=== PATIENT | female | born 1955 | race Caucasian/White ===

== ENCOUNTER → 2018-11-09 | Outpatient (REF) | payer MEDICARE, OTHER | LOC: M LAB REF 12:53 | PROVIDERS: ATTEND Internal Medicine | DX: Z01.89 Encounter for other specified special examinations (principal) ==

== ENCOUNTER → 2019-02-01 | Outpatient (REF) | payer MEDICARE, OTHER ==
[2019-02-01 17:55] LABS: PERCENT SATURATION 23.1 % (13.2-45.0)
== END ==
LOC: M LAB REF 16:18
PROVIDERS: ATTEND Internal Medicine
DX: D50.9 Iron deficiency anemia, unspecified (principal)

== ENCOUNTER → 2020-01-08 | Outpatient (REF) | payer MEDICARE, OTHER ==
[~2020-01-08] MED LIST: AMLO1TAB24; BUPR-69; DULO1CAP5; DULO1CAP6; HYDR-3363; MONT10TA4; OMEP1CAP73; PROP20TA72; SYNT137T7; VALS1TAB67
== END ==
LOC: M LAB REF 19:15
PROVIDERS: ATTEND Physician Assistant
DX: D22.39 Melanocytic nevi of other parts of face (principal)
CPT/HCPCS: 11102; 17110; 88305; G0463

== ENCOUNTER 2020-02-03 14:19 | Emergency (ER) | payer MEDICARE, OTHER ==
[~2020-02-03] VITALS: Ht 167.6 cm; Wt 92.1 kg
[2020-02-03] MEDS ORDERED: MONT10TA4 (14:43)
[2020-02-03] MEDS ORDERED: OMEP1CAP73 (14:43)
[2020-02-03] MEDS ORDERED: AMLO1TAB24 (14:43)
[2020-02-03] MEDS ORDERED: SYNT137T7 (14:43)
[2020-02-03] MEDS ORDERED: BUPR-69 (14:43)
[2020-02-03] MEDS ORDERED: PROP20TA72 (14:43)
[2020-02-03] MEDS ORDERED: VALS1TAB67 (14:43)
[2020-02-03] MEDS ORDERED: DULO1CAP6 (14:43)
[2020-02-03] MEDS ORDERED: HYDR-3363 (14:43)
[2020-02-03] MEDS ORDERED: DULO1CAP5 (14:43)
[2020-02-03] MEDS ORDERED: ONDANSETRON 4MG/2ML VIAL IV ONE (15:30)
[2020-02-03] MEDS ORDERED: KETOROLAC 30 MG/ML 1ML VIAL IV ONE (15:30)
[2020-02-03] MEDS ORDERED: NS 1,000 ML IV ONE (15:30)
[2020-02-03 15:47] LABS: BASO % 0.5 % (0.0-1.0); EOS # 0.1 10^3/uL (0.0-0.5); EOS % 0.9 % (0.0-3.0); HEMATOCRIT 43.8 % (36.0-47.0); HEMOGLOBIN 14.1 g/dl (12.0-15.5); LYMPH # 2.3 10^3/uL (1.5-5.0); LYMPH % 28.6 % (24.0-44.0); MEAN CORPUSCULAR HEMOGLOBIN 29.4 pg (27.0-33.0); MEAN CORPUSCULAR HGB CONC 32.2 g/dl (32.0-36.5); MEAN CORPUSCULAR VOLUME 91.3 fl (80.0-96.0); MONO # 0.6 10^3/uL (0.0-0.8); MONO % 7.8 % (0.0-5.0); NEUTROPHILS % 61.8 % (36.0-66.0); PLATELET COUNT, AUTOMATED 253 10^3/uL (150-450); WHITE BLOOD COUNT 8.1 10^3/uL (4.0-10.0)
[2020-02-03 16:13] LABS: ALBUMIN 3.8 GM/DL (3.2-5.2); ALT/SGPT 48 U/L (12-78); BILIRUBIN,DIRECT < 0.1 MG/DL (0.0-0.2); BILIRUBIN,TOTAL 0.3 MG/DL (0.2-1.0); BLOOD UREA NITROGEN 14 MG/DL (7-18); CALCIUM LEVEL 9.3 MG/DL (8.8-10.2); CARBON DIOXIDE LEVEL 28 MEQ/L (21-32); CHLORIDE LEVEL 105 MEQ/L (98-107); CREATININE FOR GFR 0.88 MG/DL (0.55-1.30); GLOMERULAR FILTRATION RATE > 60.0 (>45); GLUCOSE, FASTING 98 MG/DL (70-100); LIPASE 382 U/L (73-393); POTASSIUM SERUM 4.4 MEQ/L (3.5-5.1); SODIUM LEVEL 138 MEQ/L (136-145); TOTAL PROTEIN 6.8 GM/DL (6.4-8.2)
[2020-02-03 16:49] VITALS: BP 145/75
== END 2020-02-03 16:55 | disposition home or self-care (01) ==
LOC: M ED 14:19
DX: R51.9 Headache, unspecified (principal); R11.0 Nausea; R53.81 Other malaise; R53.83 Other fatigue; I10 Essential (primary) hypertension; E03.9 Hypothyroidism, unspecified; K76.0 Fatty (change of) liver, not elsewhere classified; G47.30 Sleep apnea, unspecified; F33.9 Major depressive disorder, recurrent, unspecified; Z98.84 Bariatric surgery status; Z79.899 Other long term (current) drug therapy; Z79.890 Hormone replacement therapy; Z88.1 Allergy status to other antibiotic agents; Z88.2 Allergy status to sulfonamides; Z91.048 Other nonmedicinal substance allergy status
CPT/HCPCS: 80048; 80076; 83690; 85025; 96361; 96374; 96375; 99284; J1885; J2405

== ENCOUNTER 2020-07-22 10:24 | Emergency (ER) | payer MEDICARE, OTHER ==
[~2020-07-22] VITALS: Ht 167.6 cm; Wt 92.1 kg
[~2020-07-22 10:24] MED LIST changes: +MONT10TA10; -MONT10TA4
[2020-07-22] MEDS ORDERED: KETOROLAC 30 MG/ML 1ML VIAL IV ONE (11:30)
[2020-07-22 11:39] LABS: BASO % 0.3 % (0.0-1.0); EOS # 0.1 10^3/uL (0.0-0.5); EOS % 0.5 % (0.0-3.0); HEMATOCRIT 45.5 % (36.0-47.0); HEMOGLOBIN 14.9 g/dl (12.0-15.5); LYMPH # 2.1 10^3/uL (1.5-5.0); LYMPH % 21.2 % (24.0-44.0); MEAN CORPUSCULAR HEMOGLOBIN 30.2 pg (27.0-33.0); MEAN CORPUSCULAR HGB CONC 32.7 g/dl (32.0-36.5); MEAN CORPUSCULAR VOLUME 92.1 fl (80.0-96.0); MONO # 0.7 10^3/uL (0.0-0.8); MONO % 7.2 % (2.0-8.0); NEUTROPHILS % 70.4 % (36.0-66.0); PLATELET COUNT, AUTOMATED 257 10^3/uL (150-450); RED BLOOD COUNT 4.94 10^6/uL (4.00-5.40)
[2020-07-22 12:13] LABS: ALBUMIN 3.9 GM/DL (3.2-5.2); ALT/SGPT 54 U/L (12-78); BILIRUBIN,DIRECT < 0.1 MG/DL (0.0-0.2); BILIRUBIN,TOTAL 0.2 MG/DL (0.2-1.0); LIPASE 289 U/L (73-393)
--- NOTE | 2020-07-22 12:15 | REP ---
INDICATION: L flank pain, hematuria, hx of stones COMPARISON: 05/18/2014 TECHNIQUE: Axial noncontrast images from the lung bases to the pubic symphysis with coronal and sagittal reformations. This CT examination was performed using the following dose reduction techniques: Automated exposure control, adjustment of mA and/or kv according to the patient's size, and use of iterative reconstruction technique. FINDINGS: Moderate acute left-sided obstructive uropathy with hydroureteronephrosis, perinephric and periureteral stranding secondary to a 6 mm calculus in the distal left ureter (series 201; images 123-125). Multiple nonobstructing left renal calculi are identified including 11 mm calculus at the ureteropelvic junction. Right kidney includes few nonobstructing calculi and forming staghorn calculus in the lower pole measuring approximately 2 cm. Liver, spleen, pancreas, and bilateral adrenal glands are normal for noncontrast evaluation. Cholelithiasis suggested without acute cholecystitis. Evidence for prior gastric bypass surgery. No bowel obstruction or acute inflammatory process. Pelvis demonstrates normal bladder and age-appropriate uterus/adnexa. No ascites. No free air. No adenopathy. Atherosclerotic changes to the aorta and vasculature noted without aneurysm. Musculoskeletal structures demonstrate osteopenia and degenerative changes. Lung bases are clear. IMPRESSION: 1. Acute left-sided obstructive uropathy with a 6 mm calculus in the distal left ureter along with multiple bilateral nonobstructing renal calculi. 2. Cholelithiasis. <Electronically signed by Mook Quinones > 07/22/20 [id number]
[2020-07-22] MEDS ORDERED: HYDR-4571 PO (12:56)
[2020-07-22] MEDS ORDERED: FLOM0.4C39 PO (12:56)
[2020-07-22 13:03] VITALS: BP 151/70
== END 2020-07-22 13:29 | disposition home or self-care (01) ==
LOC: M ED 10:24
DX: K80.20 Calculus of gallbladder without cholecystitis without obstruction (principal); N20.0 Calculus of kidney; I10 Essential (primary) hypertension; E03.9 Hypothyroidism, unspecified; F33.9 Major depressive disorder, recurrent, unspecified; G47.33 Obstructive sleep apnea (adult) (pediatric); K76.9 Liver disease, unspecified; Z79.899 Other long term (current) drug therapy; Z79.890 Hormone replacement therapy; Z88.1 Allergy status to other antibiotic agents; Z88.2 Allergy status to sulfonamides; Z91.048 Other nonmedicinal substance allergy status; Z87.891 Personal history of nicotine dependence
CPT/HCPCS: 36415; 74176; 80047; 80076; 81001; 83690; 85025; 87086; 96374; 99284; J1885

== ENCOUNTER 2020-08-12 16:39 | Emergency (ER) | payer MEDICARE, OTHER ==
[~2020-08-12] VITALS: Ht 167.6 cm; Wt 93.3 kg
[~2020-08-12 16:39] MED LIST changes: +FLOM0.4C39 PO; +HYDR-4571 PO
--- NOTE | 2020-08-12 17:12 | REP ---
INDICATION: injury, pain, 4th metatarsal COMPARISON: None. TECHNIQUE: Four views left 4th toe. FINDINGS: There is nondisplaced oblique fracture of the 4th proximal phalanx. There is no other evidence of acute fracture or dislocation. IMPRESSION: Nondisplaced fracture 4th proximal phalanx. <Electronically signed by Pedro Luis Houston > 08/12/20 [id number]
[2020-08-12] MEDS ORDERED: BOOSTRIX/ADACEL VACCINE (DIPHTH/PERTUSS/ACELL/TETANUS) 0.5ML SYR IM ONE (21:20)
[2020-08-12 21:44] VITALS: BP 172/80
== END 2020-08-12 22:05 | disposition home or self-care (01) ==
LOC: M ED 16:39
DX: I10 Essential (primary) hypertension (principal); S30.810A Abrasion of lower back and pelvis, initial encounter; S92.342A Displaced fracture of fourth metatarsal bone, left foot, initial encounter for closed fracture; W01.0XXA Fall on same level from slipping, tripping and stumbling without subsequent striking against object, initial encounter; Y92.018 Other place in single-family (private) house as the place of occurrence of the external cause; E03.9 Hypothyroidism, unspecified; F33.9 Major depressive disorder, recurrent, unspecified; G47.30 Sleep apnea, unspecified; K76.0 Fatty (change of) liver, not elsewhere classified; K21.9 Gastro-esophageal reflux disease without esophagitis; Z98.84 Bariatric surgery status; Z79.899 Other long term (current) drug therapy; Z79.890 Hormone replacement therapy; Z88.1 Allergy status to other antibiotic agents; Z88.2 Allergy status to sulfonamides; Z91.048 Other nonmedicinal substance allergy status; F12.20 Cannabis dependence, uncomplicated

== ENCOUNTER → 2020-11-11 | Outpatient (CLI) | payer MEDICARE, OTHER ==
[~2020-11-11] MED LIST changes: -AMLO1TAB24; +AMLO1TAB24 PO; +ASPI81TA26 PO; +B-12100010 PO; -BUPR-69; +BUPR-69 PO; +D31000TA2 PO; -DULO1CAP6; +DULO1CAP6 PO; +LINZ145C PO; -MONT10TA10; +MONT10TA97 PO; -OMEP1CAP73; +OMEP1CAP73 PO; -PROP20TA72; +PROP20TA72 PO; +SLOWTAB2 PO; -SYNT137T7; +SYNT137T7 PO; -VALS1TAB67; +VALS1TAB67 PO
== END ==
LOC: M WHC 09:00
PROVIDERS: ATTEND Internal Medicine
DX: Z12.31 Encounter for screening mammogram for malignant neoplasm of breast (principal)

== ENCOUNTER → 2021-02-24 | Outpatient (CLI) | payer MEDICARE, OTHER ==
[~2021-02-24] MED LIST changes: +AMLO1TAB24; -AMLO1TAB24 PO; -ASPI81TA26 PO; -B-12100010 PO; +BUPR-69; -BUPR-69 PO; -D31000TA2 PO; +DULO1CAP6; -DULO1CAP6 PO; -LINZ145C PO; +MONT10TA10; -MONT10TA97 PO; +OMEP1CAP73; -OMEP1CAP73 PO; +PROP20TA72; -PROP20TA72 PO; -SLOWTAB2 PO; +SYNT137T7; -SYNT137T7 PO; +VALS1TAB67; -VALS1TAB67 PO
--- NOTE | 2021-02-24 09:34 | REP ---
INDICATION: RUQ ABD PAIN. COMPARISON: 04/13/2013 TECHNIQUE: Real-time sonographic evaluation of the right upper quadrant with Doppler FINDINGS: Multiple ultrasonographic images of the liver show diffuse increased echoes throughout the hepatic parenchyma without evidence of a mass or ductal dilatation. The common bile duct measures approximately 3 mm in its greatest transverse dimension. Multiple ultrasonographic images of the gallbladder show no focal or diffuse gallbladder wall thickening. Once again, nonshadowing immobile echogenic material is seen along the dependent portion of the gallbladder wall. This appears unchanged. There are no echogenic foci within the gallbladder lumen, which casts acoustic shadows. There is no pericholecystic edema. Images of the pancreatic region show no gross abnormality. Seen in the lower pole the right kidney note is again made of echogenic material which casts in acoustic shadow. Also seen in the lower pole there is a round anechoic structure consistent with a cyst. This is unchanged from the prior exam although slightly larger. IMPRESSION: 1. Echogenic material in the gallbladder as described above. Sludge versus tiny polyps or nonshadowing calculi. 2. Unchanged echogenic foci in the lower pole of the right kidney suspicious for calculi. Prior CT of 07/22/2020 did show renal calculi. 3. Simple right renal cyst and seen on the prior exam. 4. Possible mild fatty infiltration of the liver. Accredited by the [employer] in General Ultrasound. <Electronically signed by Louie West > 02/24/21 [id number]
== END ==
LOC: M RAD 08:33
PROVIDERS: ATTEND Internal Medicine
DX: R10.11 Right upper quadrant pain (principal); K82.8 Other specified diseases of gallbladder

== ENCOUNTER → 2021-04-07 | Outpatient (CLI) | payer MEDICARE, OTHER ==
--- NOTE | 2021-04-07 10:36 | REP ---
INDICATION: SLUDGE VS POLYPS, RUQ PAIN. COMPARISON: None TECHNIQUE/RADIOTRACER AND DOSE: FOLLOWING THE INTRAVENOUS ADMINISTRATION OF 6.6 MCI TECHNETIUM 99 M-MEBROFENIN, MULTIPLE IMAGES OF THE RIGHT UPPER QUADRANT ARE PERFORMED FOR 60 MINUTES. NEXT 8 OZ OF ENSURE ENLIVE IS INGESTED AND FURTHER IMAGING IS PERFORMED FOR 65 MINUTES. FINDINGS: THE GALLBLADDER IS VISUALIZED AT 55 MINUTES POST INJECTION. THERE IS BILIARY TO BOWEL TRANSIT AT 15MINUTES POST INJECTION. THERE IS NO SCINTIGRAPHIC EVIDENCE OF CHOLECYSTITIS. GALLBLADDER EJECTION FRACTION IS CALCULATED TO BE 21% WHICH IS below a normal value of greater than 35%. IMPRESSION: Gallbladder ejection fraction 21% is below a normal ejection fraction of greater than 35%. <Electronically signed by Pedro Luis Houston > 04/07/21 [id number]
== END ==
LOC: M RAD 07:26
PROVIDERS: ATTEND Internal Medicine
DX: R10.11 Right upper quadrant pain (principal)
CPT/HCPCS: 78227; A9537

== ENCOUNTER → 2021-06-07 | Outpatient (CLI) | payer MEDICARE, OTHER ==
[~2021-06-07] MED LIST changes: -AMLO1TAB24; +AMLO1TAB24 PO; +ASPI81TA26 PO; +B-12100010 PO; -BUPR-69; +BUPR-69 PO; -DULO1CAP6; +DULO1CAP6 PO; +LINZ145C PO; -MONT10TA10; +MONT10TA97 PO; -OMEP1CAP73; +OMEP1CAP73 PO; -PROP20TA72; +PROP20TA72 PO; +SLOWTAB2 PO; -SYNT137T7; +SYNT137T7 PO; -VALS1TAB67; +VALS1TAB67 PO; +VITA100093 PO
== END ==
LOC: M LABSMTC 09:33
PROVIDERS: ATTEND Anesthesiology
DX: Z01.812 Encounter for preprocedural laboratory examination (principal); Z20.822 Contact with and (suspected) exposure to COVID-19

== ENCOUNTER 2021-06-12 09:52 | Day surgery (SDC) | payer MEDICARE, OTHER ==
[~2021-06-12] VITALS: Ht 167.6 cm; Wt 88.9 kg
[~2021-06-12 09:52] MED LIST changes: +CYCLOPENTOLATE 1% OPHTH SOLN 2 ML BTL OD SCH; +FLURBIPROFEN 0.03% OPHTH SOLN 2.5 ML OD SCH; +LIDOCAINE 1% SDV 5ML VIAL As Ordered ONE; +LR 1,000 ML IV SCH; +MAXITROL OPHTH SUSP 5 ML As Ordered ONE; +MIDAZOLAM INJ 2MG/2ML VIAL (J2250 PER 1MG) As Ordered ONE; +PHENYLEPHRINE 2.5% OPHTH SOL 2ML OD SCH; +TETRACAINE 0.5% OPHTH SOLN 4ML OD SCH; +fentaNYL 100 MCG/2 ML INJECTION As Ordered ONE
[2021-06-12] MEDS ORDERED: PHENYLEPHRINE HCL 10 % OPHTH. SOL 5ML OD ONE (10:25)
[2021-06-12] MEDS ORDERED: MIDAZOLAM INJ 2MG/2ML VIAL (J2250 PER 1MG) As Ordered ONE (12:47)
[2021-06-12 13:45] VITALS: BP 160/74
== END 2021-06-12 13:52 | disposition home or self-care (01) ==
LOC: M SDC 09:52
PROVIDERS: ATTEND Ophthalmology
DX: H25.11 Age-related nuclear cataract, right eye (principal); I10 Essential (primary) hypertension; E03.9 Hypothyroidism, unspecified; K58.9 Irritable bowel syndrome, unspecified; K21.9 Gastro-esophageal reflux disease without esophagitis; F32.9 Major depressive disorder, single episode, unspecified; G47.9 Sleep disorder, unspecified; R06.83 Snoring; Z98.84 Bariatric surgery status; F12.10 Cannabis abuse, uncomplicated; Z88.8 Allergy status to other drugs, medicaments and biological substances; Z79.899 Other long term (current) drug therapy
CPT/HCPCS: 66984; J2250; J3010; V2632

== ENCOUNTER → 2021-07-05 | Outpatient (CLI) | payer MEDICARE, OTHER ==
[~2021-07-05] MED LIST changes: -CYCLOPENTOLATE 1% OPHTH SOLN 2 ML BTL OD SCH; -FLURBIPROFEN 0.03% OPHTH SOLN 2.5 ML OD SCH; -LIDOCAINE 1% SDV 5ML VIAL As Ordered ONE; -LR 1,000 ML IV SCH; -MAXITROL OPHTH SUSP 5 ML As Ordered ONE; +METO5TAB2 PO; -MIDAZOLAM INJ 2MG/2ML VIAL (J2250 PER 1MG) As Ordered ONE; -PHENYLEPHRINE 2.5% OPHTH SOL 2ML OD SCH; -TETRACAINE 0.5% OPHTH SOLN 4ML OD SCH; -fentaNYL 100 MCG/2 ML INJECTION As Ordered ONE
== END ==
LOC: M LABSMTC 09:37
PROVIDERS: ATTEND Anesthesiology
DX: Z11.52 Encounter for screening for COVID-19 (principal); Z20.822 Contact with and (suspected) exposure to COVID-19

== ENCOUNTER 2021-07-10 09:24 | Day surgery (SDC) | payer MEDICARE, OTHER ==
[~2021-07-10] VITALS: Ht 167.6 cm; Wt 88.5 kg
[~2021-07-10 09:24] MED LIST changes: +LIDOCAINE 1% SDV 5ML VIAL As Ordered ONE; +LR 1,000 ML IV SCH
[2021-07-10] MEDS: TETRACAINE 0.5% OPHTH SOLN 4ML OS SCH ×2 (10:02→10:09)
[2021-07-10] MEDS: PHENYLEPHRINE 2.5% OPHTH SOL 2ML OS SCH ×3 (10:02→10:17)
[2021-07-10] MEDS: FLURBIPROFEN 0.03% OPHTH SOLN 2.5 ML OS SCH ×3 (10:02→10:17)
[2021-07-10] MEDS: CYCLOPENTOLATE 1% OPHTH SOLN 2 ML BTL OS SCH ×3 (10:02→10:16)
[2021-07-10] MEDS ORDERED: MAXITROL OPHTH SUSP 5 ML As Ordered ONE (11:36)
[2021-07-10] MEDS ORDERED: MIDAZOLAM INJ 2MG/2ML VIAL (J2250 PER 1MG) As Ordered ONE (11:36)
[2021-07-10] MEDS ORDERED: fentaNYL 100 MCG/2 ML INJECTION As Ordered ONE (11:36)
[2021-07-10] MEDS ORDERED: ACETYLCHOLINE OPHTH SOLN 1% 2ML (MIOCHOL-E) As Ordered ONE (11:55)
[2021-07-10 12:03] VITALS: BP 167/79
== END 2021-07-10 12:36 | disposition home or self-care (01) ==
LOC: M SDC 09:24
PROVIDERS: ATTEND Ophthalmology
DX: H25.12 Age-related nuclear cataract, left eye (principal); I10 Essential (primary) hypertension; G47.33 Obstructive sleep apnea (adult) (pediatric); Z98.84 Bariatric surgery status; K21.9 Gastro-esophageal reflux disease without esophagitis; K76.0 Fatty (change of) liver, not elsewhere classified; E03.9 Hypothyroidism, unspecified; F32.9 Major depressive disorder, single episode, unspecified; Z79.82 Long term (current) use of aspirin; Z79.899 Other long term (current) drug therapy
CPT/HCPCS: 66984; J2250; J3010; V2632

== ENCOUNTER → 2021-12-25 | Outpatient (REF) | payer MEDICARE, OTHER ==
[~2021-12-25] MED LIST changes: -LIDOCAINE 1% SDV 5ML VIAL As Ordered ONE; -LR 1,000 ML IV SCH
== END ==
LOC: M SFHCDERM 16:34
PROVIDERS: ATTEND Physician Assistant
DX: L82.1 Other seborrheic keratosis (principal)

== ENCOUNTER → 2022-02-05 | Outpatient (REF) | payer MEDICARE, OTHER ==
[~2022-02-05] MED LIST changes: +ALBU8.5H PO; +AZIT-12 PO; +BENZ200C70 PO
== END ==
LOC: M LAB REF 16:03
PROVIDERS: ATTEND Physician Assistant Medical
DX: B34.9 Viral infection, unspecified (principal)

== ENCOUNTER 2022-02-07 23:47 | Inpatient (IN) | payer MEDICARE, OTHER ==
[~2022-02-07] VITALS: Ht 167.6 cm; Wt 87.8 kg
[~2022-02-07 23:47] MED LIST changes: -ALBU8.5H PO; -AZIT-12 PO; -BENZ200C70 PO
[2022-02-08 01:08] LABS: CK-MB VALUE MASS 2.1 NG/ML (<3.6); MB/CK RELATIVE INDEX 0.34 (< OR =4)
[2022-02-08 01:09] LABS: ALBUMIN 3.2 GM/DL (3.2-5.2); ALT/SGPT 27 U/L (12-78); BILIRUBIN,DIRECT 0.2 MG/DL (0.0-0.2); BILIRUBIN,TOTAL 0.5 MG/DL (0.2-1.0); BLOOD UREA NITROGEN 9 MG/DL (7-18); CALCIUM LEVEL 8.8 MG/DL (8.8-10.2); CARBON DIOXIDE LEVEL 26 MEQ/L (21-32); CHLORIDE LEVEL 99 MEQ/L (98-107); CREATININE FOR GFR 0.59 MG/DL (0.55-1.30); GLOMERULAR FILTRATION RATE > 60.0 (>45); GLUCOSE, FASTING 117 MG/DL (70-100); NT-PRO BNP 202 PG/ML (<125); POTASSIUM SERUM 3.5 MEQ/L (3.5-5.1); SODIUM LEVEL 135 MEQ/L (136-145); TOTAL PROTEIN 6.6 GM/DL (6.4-8.2)
[2022-02-08 01:14] LABS: BASO % 0.3 % (0.0-1.0); EOS % 0.3 % (0.0-3.0); HEMATOCRIT 40.9 % (36.0-47.0); HEMOGLOBIN 13.7 g/dl (12.0-15.5); LYMPH # 2.3 10^3/uL (1.5-5.0); MEAN CORPUSCULAR HEMOGLOBIN 30.2 pg (27.0-33.0); MEAN CORPUSCULAR HGB CONC 33.5 g/dl (32.0-36.5); MEAN CORPUSCULAR VOLUME 90.3 fl (80.0-96.0); MONO # 1.3 10^3/uL (0.0-0.8); MONO % 11.1 % (2.0-8.0); NEUTROPHILS # 8.1 10^3/uL (1.5-8.5); NEUTROPHILS % 68.6 % (36.0-66.0); PLATELET COUNT, AUTOMATED 196 10^3/uL (150-450); RED BLOOD COUNT 4.53 10^6/uL (4.00-5.40); WHITE BLOOD COUNT 11.8 10^3/uL (4.0-10.0)
[2022-02-08] MEDS ORDERED: IPRATROPIUM 0.5MG/ALBUTEROL 2.5MG INH SOL UD 3ML (DUONEB) NEB ONE ×2 (01:20→03:00)
[2022-02-08] MEDS ORDERED: AUGMENTIN 875 MG TAB PO ONE (02:40)
[2022-02-08] MEDS ORDERED: methylPREDNISolone 125MG 2ML VIAL IV ONE (03:15)
[2022-02-08] MEDS ORDERED: ALBU8.5H PO (04:31)
[2022-02-08] MEDS ORDERED: AZIT-12 PO (04:31)
[2022-02-08] MEDS ORDERED: BENZ200C70 PO (04:31)
[2022-02-08] MEDS ORDERED: HOME MED LIST COMPLETE! XX SCH (04:35)
[2022-02-08] MEDS ORDERED: ACETAMINOPHEN TAB 650MG DOSE (2X325MG) PO PRN (05:25)
[2022-02-08] MEDS ORDERED: guaiFENesin DM LIQ 10ML UD PO PRN (05:25)
[2022-02-08] MEDS ORDERED: ALBUTEROL 90 MCG/ACT 8GM HFA INHALER INH PRN (05:25)
[2022-02-08] MEDS: LEVOTHYROXINE 137MCG TABLET (0.137MG) PO SCH (06:46)
[2022-02-08] MEDS: NS 1,000 ML IV SCH ×3 (06:48→20:32)
[2022-02-08] MEDS: DOXYCYCLINE HYCLATE 100MG TABLET PO SCH ×2 (06:59→08:03)
[2022-02-08] MEDS: BENZONATATE 100MG CAPSULE PO SCH ×4 (06:59→23:50)
[2022-02-08] MEDS: OMEPRAZOLE 20MG CAP PO SCH (08:03)
[2022-02-08] MEDS: DULoxetine 30MG CAPSULE (CYMBALTA) PO SCH (08:03)
[2022-02-08] MEDS: VALSARTAN 80 MG TAB (DIOVAN) PO SCH (08:04)
[2022-02-08] MEDS: amLODIPine 5 MG TAB PO SCH (08:04)
[2022-02-08] MEDS: ASPIRIN 81MG ENTERIC TABLET PO SCH (08:04)
[2022-02-08] MEDS: IPRATROPIUM 0.5MG/ALBUTEROL 2.5MG INH SOL UD 3ML (DUONEB) NEB SCH ×3 (08:27→20:00)
[2022-02-08] MEDS: PROPRANOLOL 20 MG TAB PO SCH (10:21)
[2022-02-08] MEDS: buPROPion 100 MG TAB PO SCH (10:21)
[2022-02-08] MEDS: methylPREDNISolone 40MG 1ML VIAL IV SCH ×2 (12:20→20:31)
[2022-02-08] MEDS: HEPARIN SOD (PORCINE) 5000UNITS/ML 1ML VIAL/SYRINGE SC SCH ×2 (14:17→20:32)
[2022-02-08 17:45] VITALS: BP 151/83
[2022-02-09] MEDS: IPRATROPIUM 0.5MG/ALBUTEROL 2.5MG INH SOL UD 3ML (DUONEB) NEB SCH ×4 (00:13→21:20)
[2022-02-09 03:00] VITALS: BP 146/62
[2022-02-09] MEDS: methylPREDNISolone 40MG 1ML VIAL IV SCH ×3 (03:20→21:57)
[2022-02-09 06:00] VITALS: BP 140/62
[2022-02-09] MEDS: BENZONATATE 100MG CAPSULE PO SCH ×4 (06:00→23:54)
[2022-02-09] MEDS: HEPARIN SOD (PORCINE) 5000UNITS/ML 1ML VIAL/SYRINGE SC SCH ×3 (06:13→21:57)
[2022-02-09] MEDS: LEVOTHYROXINE 137MCG TABLET (0.137MG) PO SCH (06:13)
[2022-02-09 07:52] LABS: BASO % 0.2 % (0.0-1.0); EOS # 0.4 10^3/uL (0.0-0.5); EOS % 2.5 % (0.0-3.0); HEMATOCRIT 35.7 % (36.0-47.0); HEMOGLOBIN 12.1 g/dl (12.0-15.5); LYMPH # 1.9 10^3/uL (1.5-5.0); LYMPH % 11.3 % (24.0-44.0); MEAN CORPUSCULAR HEMOGLOBIN 30.5 pg (27.0-33.0); MEAN CORPUSCULAR HGB CONC 33.9 g/dl (32.0-36.5); MEAN CORPUSCULAR VOLUME 89.9 fl (80.0-96.0); MONO # 0.8 10^3/uL (0.0-0.8); MONO % 4.6 % (2.0-8.0); NEUTROPHILS # 13.2 10^3/uL (1.5-8.5); PLATELET COUNT, AUTOMATED 225 10^3/uL (150-450); RED BLOOD COUNT 3.97 10^6/uL (4.00-5.40); WHITE BLOOD COUNT 16.5 10^3/uL (4.0-10.0)
[2022-02-09] MEDS: PROPRANOLOL 20 MG TAB PO SCH (08:15)
[2022-02-09] MEDS: DULoxetine 30MG CAPSULE (CYMBALTA) PO SCH (08:16)
[2022-02-09] MEDS: ASPIRIN 81MG ENTERIC TABLET PO SCH (08:16)
[2022-02-09] MEDS: VALSARTAN 80 MG TAB (DIOVAN) PO SCH (08:16)
[2022-02-09] MEDS: amLODIPine 5 MG TAB PO SCH (08:16)
[2022-02-09] MEDS: DOXYCYCLINE HYCLATE 100MG TABLET PO SCH ×2 (08:16→21:57)
[2022-02-09] MEDS: OMEPRAZOLE 20MG CAP PO SCH (08:16)
[2022-02-09] MEDS: buPROPion 100 MG TAB PO SCH (08:16)
[2022-02-09 08:35] LABS: BLOOD UREA NITROGEN 11 MG/DL (7-18); CALCIUM LEVEL 9.1 MG/DL (8.8-10.2); CARBON DIOXIDE LEVEL 25 MEQ/L (21-32); CHLORIDE LEVEL 105 MEQ/L (98-107); CREATININE FOR GFR 0.71 MG/DL (0.55-1.30); GLOMERULAR FILTRATION RATE > 60.0 (>45); GLUCOSE, FASTING 197 MG/DL (70-100); POTASSIUM SERUM 3.9 MEQ/L (3.5-5.1); SODIUM LEVEL 136 MEQ/L (136-145)
[2022-02-09 17:10] VITALS: BP 157/83
[2022-02-09 20:18] VITALS: BP 145/67
[2022-02-09] MEDS ORDERED: amLODIPine 5 MG TAB PO ONE (21:10)
[2022-02-10] MEDS: IPRATROPIUM 0.5MG/ALBUTEROL 2.5MG INH SOL UD 3ML (DUONEB) NEB SCH ×2 (02:35→06:13)
[2022-02-10] MEDS: methylPREDNISolone 40MG 1ML VIAL IV SCH (03:06)
[2022-02-10] MEDS: BENZONATATE 100MG CAPSULE PO SCH ×2 (05:42→12:21)
[2022-02-10 06:16] VITALS: BP 156/74
[2022-02-10] MEDS: LEVOTHYROXINE 137MCG TABLET (0.137MG) PO SCH (06:27)
[2022-02-10] MEDS: HEPARIN SOD (PORCINE) 5000UNITS/ML 1ML VIAL/SYRINGE SC SCH (06:27)
[2022-02-10 07:35] VITALS: BP 139/62
[2022-02-10] MEDS: PROPRANOLOL 20 MG TAB PO SCH (08:49)
[2022-02-10] MEDS: VALSARTAN 80 MG TAB (DIOVAN) PO SCH (08:50)
[2022-02-10] MEDS: buPROPion 100 MG TAB PO SCH (08:51)
[2022-02-10] MEDS: ASPIRIN 81MG ENTERIC TABLET PO SCH (10:06)
[2022-02-10 10:07] VITALS: BP 136/84
[2022-02-10] MEDS: DULoxetine 30MG CAPSULE (CYMBALTA) PO SCH (10:07)
[2022-02-10] MEDS: OMEPRAZOLE 20MG CAP PO SCH (10:07)
[2022-02-10] MEDS: amLODIPine 5 MG TAB PO SCH (10:07)
[2022-02-10] MEDS: DOXYCYCLINE HYCLATE 100MG TABLET PO SCH (10:07)
[2022-02-10] MEDS ORDERED: PRED20TA PO (11:16)
[2022-02-10] MEDS ORDERED: DOXY100T PO (11:16)
[2022-02-10] MEDS ORDERED: SPIR1CAP INH (11:16)
[2022-02-10] MEDS ORDERED: VENTAER INH (11:16)
[2022-02-11] MEDS ORDERED: predniSONE 20 MG TAB PO SCH (09:00)
== END 2022-02-10 13:06 | disposition home or self-care (01) | DRG 203 ==
LOC: M ED 23:47 → M ED INP 23:48 → ENRESERV 02-08 16:41 → M MSPAV 02-08 17:35 → OBSVTOIN 02-09 17:15 → EEVIPCON 02-09 17:15
PROVIDERS: ADMIT Internal Medicine; ATTEND Internal Medicine
DX: J45.909 Unspecified asthma, uncomplicated (principal); F32.A Depression, unspecified; B97.4 Respiratory syncytial virus as the cause of diseases classified elsewhere; I10 Essential (primary) hypertension; E03.9 Hypothyroidism, unspecified; R09.02 Hypoxemia; Z79.890 Hormone replacement therapy; Z79.82 Long term (current) use of aspirin; Z79.899 Other long term (current) drug therapy; Z90.49 Acquired absence of other specified parts of digestive tract; Z87.891 Personal history of nicotine dependence; Z98.84 Bariatric surgery status

== ENCOUNTER → 2022-04-20 | Outpatient (REF) | payer MEDICARE, OTHER ==
[~2022-04-20] MED LIST changes: +ALBU8.5H PO; +AZIT-12 PO; +BENZ200C70 PO; +DOXY100T PO; +PRED20TA PO; +SPIR1CAP INH; +VENTAER INH
== END ==
LOC: M LAB REF 16:20
PROVIDERS: ATTEND Internal Medicine
DX: E83.52 Hypercalcemia (principal)

== ENCOUNTER → 2022-04-27 | Outpatient (CLI) | payer MEDICARE, OTHER | LOC: M WHC 08:03 | PROVIDERS: ATTEND Internal Medicine | DX: Z12.31 Encounter for screening mammogram for malignant neoplasm of breast (principal); M85.851 Other specified disorders of bone density and structure, right thigh; M85.852 Other specified disorders of bone density and structure, left thigh; M85.89 Other specified disorders of bone density and structure, multiple sites ==

== ENCOUNTER → 2023-05-14 | Outpatient (CLI) | payer MEDICARE, OTHER | LOC: M WHC 08:51 | PROVIDERS: ATTEND Internal Medicine | DX: Z12.31 Encounter for screening mammogram for malignant neoplasm of breast (principal) ==

== ENCOUNTER → 2024-02-08 | Outpatient (REF) | payer MEDICARE, OTHER | LOC: M LAB REF 11:59 | PROVIDERS: ATTEND Internal Medicine | DX: D51.9 Vitamin B12 deficiency anemia, unspecified (principal) ==

== ENCOUNTER → 2024-05-22 | Outpatient (CLI) | payer MEDICARE, OTHER | LOC: M WHC 14:38 | PROVIDERS: ATTEND Internal Medicine | DX: Z12.31 Encounter for screening mammogram for malignant neoplasm of breast (principal) ==

== ENCOUNTER 2024-07-24 08:59 | Emergency (ER) | payer MEDICARE, OTHER ==
[~2024-07-24] VITALS: Ht 167.6 cm; Wt 84.6 kg
[2024-07-24] MEDS: NS 500 ML IV ONE ×2 (10:24→11:12)
[2024-07-24 10:30] LABS: BASO % 0.2 % (0.0-1.0); EOS # 0.1 10^3/uL (0.0-0.5); EOS % 1.3 % (0.0-3.0); HEMOGLOBIN 14.2 g/dl (12.0-15.5); LYMPH # 1.9 10^3/uL (1.5-5.0); LYMPH % 20.6 % (24.0-44.0); MEAN CORPUSCULAR HEMOGLOBIN 29.7 pg (27.0-33.0); MEAN CORPUSCULAR HGB CONC 32.3 g/dl (32.0-36.5); MEAN CORPUSCULAR VOLUME 92.1 fl (80.0-96.0); MONO # 0.7 10^3/uL (0.0-0.8); MONO % 7.6 % (2.0-8.0); NEUTROPHILS # 6.5 10^3/uL (1.5-8.5); NEUTROPHILS % 69.9 % (36.0-66.0); PLATELET COUNT, AUTOMATED 264 10^3/uL (150-450); RED BLOOD COUNT 4.78 10^6/uL (4.00-5.40); WHITE BLOOD COUNT 9.3 10^3/uL (4.0-10.0)
[2024-07-24 10:54] LABS: LIPASE 40 U/L (12-53)
[2024-07-24 10:56] LABS: ALBUMIN 3.8 G/DL (3.2-5.2); ALKALINE PHOSPHATASE 71 U/L (35-104); ALT/SGPT 28 U/L (7.0-40); AST/SGOT 24 U/L (<34); BILIRUBIN,DIRECT < 0.1 MG/DL (<0.4); BILIRUBIN,TOTAL 0.2 MG/DL (0.3-1.2); BLOOD UREA NITROGEN 16 MG/DL (9-23); CALCIUM LEVEL 9.7 MG/DL (8.3-10.6); CARBON DIOXIDE LEVEL 29 MMOL/L (20-31); CHLORIDE LEVEL 104 MMOL/L (98-107); CREATININE FOR GFR 0.91 MG/DL (0.55-1.30); GLOMERULAR FILTRATION RATE 68.3 (>45); GLUCOSE, FASTING 100 MG/DL (74-106); POTASSIUM SERUM 4.5 MMOL/L (3.5-5.1); SODIUM LEVEL 139 MMOL/L (136-145); TOTAL PROTEIN 6.9 G/DL (5.7-8.2)
[2024-07-24 10:58] LABS: FREE T4 1.16 NG/DL (0.89-1.76); THYROID STIMULATING HORMONE 2.065 uIU/ML (0.55-4.78)
[2024-07-24 11:01] LABS: CPK CREATINE PHOSPHOKINASE 59 U/L (34-145); MB/CK RELATIVE INDEX 1.69 (< OR =4)
[2024-07-24 11:57] LABS: CK-MB VALUE MASS < 1.0 NG/ML (<3.6)
[2024-07-24 12:02] LABS: CPK CREATINE PHOSPHOKINASE 53 U/L (34-145); MB/CK RELATIVE INDEX 1.88 (< OR =4)
[2024-07-24 13:45] VITALS: BP 153/72; TEMP 97.8; O2SAT 98
== END 2024-07-24 13:45 | disposition home or self-care (01) ==
LOC: M ED 08:59
DX: B34.9 Viral infection, unspecified (principal); R42 Dizziness and giddiness; K58.9 Irritable bowel syndrome, unspecified; K21.9 Gastro-esophageal reflux disease without esophagitis; G47.30 Sleep apnea, unspecified; Z98.84 Bariatric surgery status; Z87.891 Personal history of nicotine dependence

== ENCOUNTER 2024-10-25 09:52 | Day surgery (SDC) | payer MEDICARE, OTHER ==
[~2024-10-25] VITALS: Ht 167.6 cm; Wt 85.6 kg
[~2024-10-25 09:52] MED LIST changes: -FLOM0.4C39 PO; +TAMS-18 PO
[2024-10-25] MEDS ORDERED: LIDOCAINE 2% 100 MG/5 ML SDV (FOR ANES.) As Ordered ONE (11:38)
[2024-10-25 12:00] VITALS: TEMP 98.1
[2024-10-25 12:15] VITALS: BP 139/76; O2SAT 95
== END 2024-10-25 12:24 | disposition home or self-care (01) ==
LOC: M OPP 09:52
PROVIDERS: ATTEND Surgery
DX: Z12.11 Encounter for screening for malignant neoplasm of colon (principal); D12.6 Benign neoplasm of colon, unspecified; K57.30 Diverticulosis of large intestine without perforation or abscess without bleeding; Z88.2 Allergy status to sulfonamides; Z91.048 Other nonmedicinal substance allergy status; Z79.82 Long term (current) use of aspirin; Z79.899 Other long term (current) drug therapy; Z98.84 Bariatric surgery status; Z87.891 Personal history of nicotine dependence

== ENCOUNTER → 2024-11-08 | Outpatient (CLI) | payer MEDICARE, OTHER ==
[~2024-11-08] MED LIST changes: +SLOW1TAB3 PO; -SLOWTAB2 PO
== END ==
LOC: M RAD 16:22
PROVIDERS: ATTEND Internal Medicine
DX: M16.12 Unilateral primary osteoarthritis, left hip (principal); M25.552 Pain in left hip